=== PATIENT | male | born 1995 | race Caucasian/White ===

== ENCOUNTER 2019-04-25 23:07 | Emergency (ER) | payer OTHER ==
[2019-04-26] MEDS ORDERED: DIPH,PERTUS(ACELL)TETVAC-LF 0.5 ML VIAL IM ONE (00:08)
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
[2019-04-26 00:54] VITALS: BP 133/91; PULSE 80; RESP 18; TEMP 99.1
== END 2019-04-26 00:53 | disposition home or self-care (01) ==
LOC: EC 23:07
DX: T21.12XA Burn of first degree of abdominal wall, initial encounter (principal); T31.0 Burns involving less than 10% of body surface; H61.22 Impacted cerumen, left ear; F17.200 Nicotine dependence, unspecified, uncomplicated; Z23 Encounter for immunization; X10.1XXA Contact with hot food, initial encounter; Y93.G3 Activity, cooking and baking; Y92.009 Unspecified place in unspecified non-institutional (private) residence as the place of occurrence of the external cause
CPT/HCPCS: 90471; 90715; 99283

== ENCOUNTER 2021-11-06 22:34 | Emergency (ER) | payer OTHER ==
[2021-11-06 22:38] VITALS: BP 125/80; PULSE 99; RESP 20; TEMP 99
--- NOTE | 2021-11-07 00:09 | ED ---
URI HPI - General Chief Complaint: Upper Respiratory Infection Stated Complaint: Wants COVID Test Time Seen by Provider: 11/06/21 22:42 Source: patient, RN notes reviewed Mode of arrival: ambulatory Limitations: no limitations - History of Present Illness Initial Comments: 26-year-old male presents emergency Department chief complaint of COVID-19 exposure. Patient states her symptoms days ago. Patient states that fever cough congestion bodyaches no chest pain no shortness of breath no nausea vomiting diarrhea constipation no other complaints. - Related Data Previous Rx's Medication Instructions Recorded Bacitracin Zinc Oint 28.4 gm TOPICAL BID 10 Days #1 tube 04/26/19 Allergies Allergy/AdvReac Type Severity Reaction Status Date / Time No Known Allergies Allergy Verified 11/06/21 22:36 Review of Systems ROS Statement: Those systems with pertinent positive or pertinent negative responses have been documented in the HPI. ROS Other: All systems not noted in ROS Statement are negative. Past Medical History Past Medical History: No Reported History History of Any Multi-Drug Resistant Organisms: None Reported Past Surgical History: No Surgical Hx Reported Past Psychological History: No Psychological Hx Reported Smoking Status: Current every day smoker Past Alcohol Use History: None Reported, Occasional Past Drug Use History: None Reported, Marijuana General Exam Limitations: no limitations General appearance: alert, in no apparent distress Head exam: Present: atraumatic, normocephalic, normal inspection Eye exam: Present: normal appearance, PERRL, EOMI. Absent: scleral icterus, conjunctival injection, periorbital swelling ENT exam: Present: normal exam, mucous membranes moist Neck exam: Present: normal inspection. Absent: tenderness, meningismus, lymphadenopathy Respiratory exam: Present: normal lung sounds bilaterally. Absent: respiratory distress, wheezes, rales, rhonchi, stridor Cardiovascular Exam: Present: regular rate, normal rhythm, normal heart sounds. Absent: systolic murmur, diastolic murmur, rubs, gallop, clicks Course Vital Signs 11/06/21 22:36 Temperature 99.0 F Pulse Rate 99 Respiratory 20 Rate Blood Pressure 125/80 O2 Sat by Pulse 96 Oximetry Medical Decision Making - Medical Decision Making Patient's positive for COVID-19 was offered monoclonal antibodies patient declined will be discharged in stable condition return parameters were discussed. - Lab Data Lab Results 11/06/21 Range/Units 22:41 Coronavirus (PCR) Detected A (Not Detectd) Disposition Clinical Impression: COVID-19 Disposition: HOME SELF-CARE Condition: Stable Instructions (If sedation given, give patient instructions): Coronavirus Disease 2019 (COVID-19) Additional Instructions: Please return to the Emergency Department if symptoms worsen or any other concerns. Is patient prescribed a controlled substance at d/c from ED?: No Referrals: Elenita Barba MD [Primary Care Provider] - 1-2 days Time of Disposition: 00:09
== END 2021-11-07 00:19 | disposition home or self-care (01) ==
LOC: EC 22:34
DX: U07.1 COVID-19 (principal); F17.200 Nicotine dependence, unspecified, uncomplicated; F12.90 Cannabis use, unspecified, uncomplicated
CPT/HCPCS: 87635

== ENCOUNTER 2024-03-10 23:25 | Emergency (ER) | payer OTHER ==
[2024-03-10 23:43] VITALS: BP 145/97; PULSE 90; RESP 18; TEMP 98.5
[2024-03-11] MEDS: DIPH,PERTUS(ACELL)TETVAC-LF 0.5 ML VIAL IM ONE (00:11)
[2024-03-11] MEDS: TOPICAL SKIN ADHESIVE 1 EACH AMP TOPICAL ONE (00:12)
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
== END 2024-03-11 00:30 | disposition home or self-care (01) ==
LOC: EC 23:25
DX: S01.112A Laceration without foreign body of left eyelid and periocular area, initial encounter (principal); F17.290 Nicotine dependence, other tobacco product, uncomplicated; Z23 Encounter for immunization; W22.09XA Striking against other stationary object, initial encounter
CPT/HCPCS: 12013; 90471; 90715; 99283